=== PATIENT | female | born 1980 | race Caucasian/White ===

== ENCOUNTER 2022-04-02 06:08 | Inpatient (IN) ==
--- NOTE | 2022-03-01 10:27 | PAT Medication Instructions ---
Medication Instructions Date of Service March 01, 2022 Home Medications acetaminophen 300 mg-codeine 30 mg tablet 1 tab PO Q6H PRN Pain cyclobenzaprine 10 mg tablet 10 mg PO TID dextroamphetamine-amphetamine 20 mg tablet (Adderall) 20 mg PO BID ibuprofen 800 mg tablet 800 mg PO TID pregabalin 150 mg capsule (Lyrica) 150 mg PO TID ASK your surgeon for instructions ibuprofen 800 mg tablet 800 mg PO TID DO NOT take the morning of surgery cyclobenzaprine 10 mg tablet 10 mg PO TID dextroamphetamine-amphetamine 20 mg tablet (Adderall) 20 mg PO BID Take morning of surgery With a small sip of water, OTHERWISE NOTHING TO EAT OR DRINK AFTER MIDNIGHT: acetaminophen 300 mg-codeine 30 mg tablet 1 tab PO Q6H PRN Pain (if needed) pregabalin 150 mg capsule (Lyrica) 150 mg PO TID Take evening before surgery acetaminophen 300 mg-codeine 30 mg tablet 1 tab PO Q6H PRN Pain (if needed) cyclobenzaprine 10 mg tablet 10 mg PO TID dextroamphetamine-amphetamine 20 mg tablet (Adderall) 20 mg PO BID pregabalin 150 mg capsule (Lyrica) 150 mg PO TID Other Notes If you have any questions please call us at [phone] or [phone] or [phone] or [phone]
--- NOTE | 2022-03-03 11:30 | Anesthesiology Consultation ---
Date of Service March 03, 2022 Assessment & Plan (1) Encounter for pre-operative examination: - COVID screening: Per assessment on 03/03: No known COVID-19 positive contacts or current COVID-19 related symptoms. Travel screen negative. Patient had sore throat 02/25, developed congestion, ear pain, cough (multiple negative home Covid tests). Diagnosed with bronchitis 03/01- started abx and Tessalon 03/01. Symptoms improved but not resolved. Covid test done 03/03 ([place]) was negative. Pt states she will be seeing PCP prior to surgery. - Check test AM DOS - Patient acceptable risk for surgery pending surgeon-ordered PCP clearance (SHANNAN Edward, scheduled 03/15). Chart Review Chart Review: Patient seen in Pre Admission Testing Teaching & Discussion Pre-Anesthesia Teaching/Discussion Notes: Instructed NPO after midnight before surgery,except medications with 15 cc of water. Medication instructions provided according to the PAT guidelines. History Surgery Operation Date: 04/02/22 12:25 Proposed Procedures p C4-C6 Anterior Cervical Discectomy Fusion with C5 Corpectomy Spinal Cord Monitoring - Tanner Weaver DO Height/Weight Height: 5 ft 4 in Weight: 83.2 kg Allergies Allergy/AdvReac Type Severity Reaction Status Date / Time morphine AdvReac Unknown Face Verified 03/03/22 11:30 itching tramadol AdvReac Unknown Insomnia Verified 02/26/22 15:33 Medications Home Medications Medication Instructions Recorded Confirmed Last Taken acetaminophen 300 mg-codeine 30 mg 1 tab PO Q6H PRN Pain 02/26/22 02/26/22 Unknown tablet cyclobenzaprine 10 mg tablet 10 mg PO TID 02/26/22 02/26/22 Unknown dextroamphetamine-amphetamine 20 20 mg PO BID 02/26/22 02/26/22 Unknown mg tablet (Adderall) ibuprofen 800 mg tablet 800 mg PO TID 02/26/22 02/26/22 Unknown pregabalin 150 mg capsule (Lyrica) 150 mg PO TID 02/26/22 02/26/22 Unknown Past Medical History Medical History Cervical spondylolysis History of COVID-19 03/2020, sore throat, sob, loss taste/smell > resolved Meniere disease Exercise / Class Metabolic Activity II 4-5 Yardwork/Stairs/Walk up hill (one FS (no CP, no SOB)) Past Surgical History Surgical History History of bunionectomy History of laparoscopy x2 for endometriosis and ovarian cyst removal History of open reduction and internal fixation (ORIF) procedure 5th metatarsal Hx of breast augmentation Hx of myringotomy as a baby, w/tubes Hx of rhinoplasty Past Anesthesia History No Family Hx of Anesthesia Complications and Other (Emotional with anesthesia emergence) History of PONV No Hx of PONV and Hx of Motion Sickness (Occasional) Social History Smoking Status: Former smoker Do You Dip or Chew Tobacco: No Smoking End Date: Quit many years ago Hx Alcohol Use: Yes (alfie) Alcohol type: wine alcohol intake frequency: a few times a week Hx Substance Use: No substance use type: does not use Review of Systems Patient denies chest pain, shortness of breath, dyspnea on exertion, fever, chills, , palpitations. Physical Exam PHYSICAL Full cervical extension range of motion. Full TMJ range of motion. TMD 3 finger breaths Mallampati Score 1 Dentition: intact, + crowns Lungs: clear throughout to auscultation Cardiac: regular rate and rhythm, no murmurs noted Spine: normal Carotid arteries: negative bruit Extremities: no edema Lab Results Anesthesia Preop Results Results Anesthesia Widget: WBC 5.03 K/ul (4.8-10.8) 03/03/22 Hgb 13.9 g/dl (12.0-16.0) 03/03/22 Hct 39.1 % (34.1-44.9) 03/03/22 Plt 257 K/uL (130-400) 03/03/22 Na 138 mmol/L (136-145) 03/03/22 K 4.0 mmol/L (3.5-5.1) 03/03/22 Cl 107 mmol/L (98-107) 03/03/22 CO2 25 mmol/L (21-32) 03/03/22 BUN 12 mg/dl (6-23) 03/03/22 Creat 0.73 mg/dl (0.6-1.2) 03/03/22 Glucose Level 91 mg/dl (70-99(Fasting)) 03/03/22 PT 10.4 Seconds (9.0-12.0) 03/03/22 PTT 27.6 Seconds (21.0-31.0) 03/03/22 INR 1.0 (0.9-1.1) 03/03/22 Urine Color Yellow 03/03/22 Urine Appearance Clear (Clear) 03/03/22 Urine pH 7.5 (4.5-7.5) 03/03/22 Urine Specific [place] 1.011 (1.000-1.030) 03/03/22 Urine Protein Negative (Negative) 03/03/22 Urine Glucose (UA) Negative (Negative) 03/03/22 Urine Ketones Negative (Negative) 03/03/22 Urine Blood Negative (Negative) 03/03/22 Urine Nitrite Negative (Negative) 03/03/22 Urine Bilirubin Negative (Negative) 03/03/22 Urine Urobilinogen Negative (Negative) 03/03/22 Urine Leukocyte Esterase Negative (Negative) 03/03/22 Blood Type O Negative 03/03/22 Antibody Screen NEGATIVE 03/03/22 Testing Electrocardiogram Date: 03/03/22 NSR at 85bpm. Chest X-Ray Date: 03/03/22 FINDINGS: PA and lateral chest radiographs are obtained. No prior studies are available for comparison at the time of dictation. The cardiomediastinal silhouette is unremarkable. The lungs and pleural spaces are clear. There is no pneumothorax. The bony thorax appears intact. IMPRESSION: No active disease in the chest. COVID-19 Risk Screen Screening Information COVID-19 Screen Date: 03/03/22 Exposure 21 Days Family/Household +COVID Last 21 Days: No Exposure 10 Days Any COVID Exposure Last 10 Days: No Symptoms Last 10 Days Experienced COVID Sx Last 10 Days: Yes + COVID 0-90 Days COVID + in Last 0-90 Days: No
[~2022-04-02 06:08] MED LIST: ACETAMINOPHEN 500 MG TAB PO SCH; CeleBREX 200 MG CAP PO SCH; GABAPENTIN 900 MG DOSE PO SCH; LR 15ML/HR IV SCH; ceFAZolin 2000MG 2,000 MG/15 ML SYR IV SCH
[2022-04-02] MEDS ORDERED: SUGAMMADEX SODIUM 200 MG/2 ML VIAL IV ONE (06:34)
[2022-04-02] MEDS ORDERED: MIDAZOLAM HCL 1 MG/ML 2ML VIAL ONE (06:48)
[2022-04-02] MEDS ORDERED: fentaNYL citrate 100 MCG/2 ML VIAL ONE ×2 (06:48→08:13)
[2022-04-02] MEDS ORDERED: ONDANSETRON INJ 2 MG/ML 2 ML VIAL ONE (06:48)
[2022-04-02] MEDS ORDERED: KETAMINE 50 MG/5 ML SYRINGE ONE (06:48)
[2022-04-02] MEDS ORDERED: PROPOFOL IV EMULSION 10 MG/ML 20 ML VIAL IV ONE (06:48)
[2022-04-02] MEDS ORDERED: ROCURONIUM BROMIDE 10 MG/ML 5 ML VIAL IV ONE ×4 (06:48→08:23)
[2022-04-02] MEDS ORDERED: DEXAMETHASONE SOD INJ 4 MG/ML VIAL ONE (06:48)
[2022-04-02] MEDS ORDERED: ceFAZolin 330 MG/ML 1 GM VIAL ONE (06:58)
[2022-04-02] MEDS ORDERED: ATROPINE SULFATE 0.1 MG/ML 10ML SYR IV PRN (07:13)
[2022-04-02] MEDS ORDERED: ePHEDrine sulfate 50 MG/ML AMP IV PRN (07:13)
--- NOTE | 2022-04-02 07:41 | History & Physical Bridge Note ---
Date of Service April 02, 2022 History & Physical Bridge Note I have examined the patient, reviewed the History & Physical and in the interval since the performance of the History & Physical I have noted the following changes of clinical significance: no changes noted
--- NOTE | 2022-04-02 07:42 | History & Physical Report ---
Date of Service April 02, 2022 Assessment & Plan (1) Cervical stenosis of spinal canal: Plan: C4-C6 anterior cervical discectomy and fusion, C 5 corpectomy possible C6-C7 History of Present Illness Chief Complaint: Neck and arm pain Primary Care Provider: WIN Cooper This is a 42-year-old female who presents with chronic persistent neck and arm pain after failed extensive course of nonoperative care she is here for surgical invention. Allergies Allergy/AdvReac Type Severity Reaction Status Date / Time tramadol AdvReac Severe Insomnia Verified 04/02/22 06:38 morphine AdvReac Intermediate Face Verified 04/02/22 06:38 itching Home Medications Medication Instructions Recorded Confirmed Type acetaminophen 300 mg-codeine 30 mg 1 tab PO Q6H PRN Pain 02/26/22 04/02/22 History tablet cyclobenzaprine 10 mg tablet 10 mg PO TID 02/26/22 04/02/22 History dextroamphetamine-amphetamine 20 20 mg PO BID 02/26/22 04/02/22 History mg tablet (Adderall) ibuprofen 800 mg tablet 800 mg PO TID 02/26/22 04/02/22 History pregabalin 150 mg capsule (Lyrica) 150 mg PO TID 02/26/22 04/02/22 History Past Med/Surg History Medical History Cervical spondylolysis History of COVID-19 03/2020, sore throat, sob, loss taste/smell > resolved Meniere disease Surgical History History of bunionectomy History of laparoscopy x2 for endometriosis and ovarian cyst removal History of open reduction and internal fixation (ORIF) procedure 5th metatarsal Hx of breast augmentation Hx of myringotomy as a baby, w/tubes Hx of rhinoplasty Social History Smoking Status: Former smoker Smoking End Date: Quit many years ago; Second Hand Exposure: No; Do You Dip or Chew Tobacco: No; Tobacco Cessation Education Requested by Patient: No Hx Alcohol Use: Yes (alfie) Alcohol type: wine Hx Substance Use: No Preferred Language: Bulgarian Communication Ability: Effective Dietician Required: No Beliefs That Will Affect Care: None Current Living Situation: Spouse Other Information That Helps Us Care for You: No Feels Safe at Home: Yes Safety Concerns: Feels Safe At This Time Assistive Devices: Hearing Aid - Left Physical Exam Physical Exam: Patient is alert and oriented Heart regular rhythm Lungs clear Results & Data Results & Data ([facility]) Vital Signs (Past 12 Hours) Vital Signs Temp Pulse Resp BP Pulse Ox O2 Del Method 04/02/22 06:41 36.8 C 97 H 22 129/84 98 Room Air
[2022-04-02] MEDS ORDERED: FLOSEAL HEMOSTATIC MATRIX 10ML TOP ONE (08:37)
[2022-04-02] MEDS: fentaNYL citrate 100 MCG/2 ML VIAL IV PRN ×3 (10:13→10:28)
[2022-04-02] MEDS: HYDROmorphone INJ 2 MG/ML SYR/VIAL IV PRN ×4 (10:34→10:49)
[2022-04-02] MEDS ORDERED: MIDAZOLAM HCL 1 MG/ML 2ML VIAL IV STA ×2 (10:59→11:18)
[2022-04-02] MEDS ORDERED: MIDAZOLAM SYRUP 10 MG/5 ML UDC PO SCH (11:15)
[2022-04-02] MEDS ORDERED: diazePAM 5 MG TABLET PO ONE (11:17)
--- NOTE | 2022-04-02 11:27 | Anesthesiology Progress Note ---
Date of Service April 02, 2022 Anesthesia Post Procedure Vital Signs Vital Signs: Temp Pulse Resp BP BP Pulse Ox O2 Del Method 04/02/22 11:05 87 14 142/101 H 97 Oxymask 04/02/22 11:15 79 9 L 156/92 H 96 Oxymask 04/02/22 10:55 87 23 130/92 100 Oxymask 04/02/22 10:45 84 12 129/87 96 Oxymask 04/02/22 10:35 87 20 150/64 H 98 Oxymask 04/02/22 10:25 85 12 127/71 100 Oxymask 04/02/22 10:15 89 14 114/68 100 Oxymask 04/02/22 10:09 36.2 C L 96 H 11 L 129/67 100 Oxymask 04/02/22 06:41 36.8 C 97 H 22 129/84 98 Room Air O2 Flow Rate 04/02/22 11:05 2 04/02/22 11:15 2 04/02/22 10:55 2 04/02/22 10:45 2 04/02/22 10:35 2 04/02/22 10:25 5 04/02/22 10:15 5 04/02/22 10:09 5 04/02/22 06:41 Pain Intensity Neck: Pain Intensity: 9 Transfer of Care Handoff Completed per policy Notes Mental Status: alert / awake / arousable and participated in evaluation Patient Amnestic to Procedure: Yes Nausea / Vomiting: adequately controlled Pain: adequately controlled Airway Patency, RR, SpO2: stable & adequate BP & HR: stable & adequate Hydration State: stable & adequate Anesthetic Complications: no major complications apparent and Pt Satisfied with anesthetic care
[2022-04-02] MEDS ORDERED: ONDANSETRON 4 MG OD TAB PO PRN (12:41)
[2022-04-02] MEDS ORDERED: SOD PHOSPHATE/SOD BIPHOSPHATE ENEMA 132 ML BTL PR PRN (12:41)
[2022-04-02] MEDS ORDERED: LORazepam 0.5 MG in SYRINGE 0 ML IV PRN (12:41)
[2022-04-02] MEDS ORDERED: bisacodyL 10 MG SUPP PR PRN (12:41)
[2022-04-02] MEDS ORDERED: ALUMINUM/MAGNESIUM SUSP 30 ML UDC PO PRN (12:41)
[2022-04-02] MEDS ORDERED: DO NOT ADMINISTER PNEUMOCOCCAL VACCINE PRN (12:41)
[2022-04-02] MEDS ORDERED: ACETAMINOPHEN 1,000 MG/100 ML VIAL IV PRN (12:41)
[2022-04-02] MEDS ORDERED: FAMOTIDINE 20 MG TAB PO PRN (12:41)
[2022-04-02] MEDS ORDERED: HYDROmorphone INJ 1 MG/ML SYRINGE IV PRN (12:41)
[2022-04-02] MEDS ORDERED: PROMETHAZINE HCL 12.5 MG in SODIUM CHLORIDE 0.9% 50 ML IV PRN (12:41)
[2022-04-02] MEDS ORDERED: DO NOT ADMINISTER FLU VACCINE PRN (12:41)
[2022-04-02] MEDS ORDERED: NALOXONE HCL 0.4 MG/1 ML VIAL/CARP IV PRN (12:41)
[2022-04-02] MEDS ORDERED: METOCLOPRAMIDE HCL INJ 5 MG/ML 2 ML VIAL IV PRN (12:41)
[2022-04-02] MEDS ORDERED: dexAMETHasone 8 MG in SYRINGE 0 ML IV PRN (12:41)
[2022-04-02] MEDS ORDERED: hydrOXYzine HCl 25 MG TAB PO PRN (12:41)
[2022-04-02] MEDS ORDERED: RACEPINEPHRINE 2.25% NEBU SOLN 0.5 ML VIAL INH PRN (12:41)
[2022-04-02] MEDS ORDERED: MAGNESIUM HYDROXIDE SUSP 30 ML UDC PO PRN (12:41)
[2022-04-02] MEDS ORDERED: ACETAMINOPHEN 500 MG TAB PO PRN (12:41)
[2022-04-02] MEDS ORDERED: ONDANSETRON INJ 2 MG/ML 2 ML VIAL IV PRN (12:41)
--- NOTE | 2022-04-02 12:50 | Fluoroscopy Report ---
FL cervical 2-3V CLINICAL HISTORY: ACDF C4-6 CORPECTOMY C5 TECHNIQUE: 3 views were obtained with the C-arm in the OR with the above procedure. Total fluoroscopy time was 12 seconds. Comparison: None available at the time of this dictation. FINDINGS/IMPRESSION: Intraoperative images were obtained of ACDF spanning C4-C6 and corpectomy of C5. Please correlate with intraoperative fluoroscopy and operative report. ACT 112: Negative or not required by law. Electronically signed by: Pollo Talbert M.D. 04/02/2022 12:48 PM
[2022-04-02] MEDS: LACTATED RINGER'S 1,000 ML IV SCH ×2 (13:02→22:01)
[2022-04-02] MEDS: PREGABALIN 150 MG CAP PO SCH ×2 (13:21→21:10)
[2022-04-02] MEDS: AMPHETAMINE ASP/SULF/DEXTRAMPH 20 MG TAB PO SCH (13:21)
[2022-04-02] MEDS: oxyCODONE HCL IR 5 MG TAB (IMMEDIATE RELEASE) PO PRN ×3 (13:47→22:01)
[2022-04-02] MEDS: dexAMETHasone 6 MG in SYRINGE 0 ML IV SCH ×2 (14:29→22:00)
[2022-04-02] MEDS: ceFAZolin 2000MG 2,000 MG/15 ML SYR IV SCH (15:44)
[2022-04-02] MEDS: CYCLOBENZAPRINE HCL 10 MG TAB PO PRN (18:43)
[2022-04-02] MEDS ORDERED: DOCUSATE SODIUM/SENNA 50/8.6MG TAB PO SCH (21:00)
[2022-04-03] MEDS: ceFAZolin 2000MG 2,000 MG/15 ML SYR IV SCH (00:04)
[2022-04-03] MEDS: HYDROmorphone INJ 0.5 MG/0.5 ML SYR IV PRN ×2 (00:08→04:07)
[2022-04-03] MEDS: LORazepam 0.5 MG TAB PO PRN ×2 (00:08→01:04)
[2022-04-03] MEDS: CYCLOBENZAPRINE HCL 10 MG TAB PO PRN ×2 (02:10→10:37)
[2022-04-03] MEDS: oxyCODONE HCL IR 5 MG TAB (IMMEDIATE RELEASE) PO PRN ×3 (02:10→10:37)
[2022-04-03] MEDS: diphenhydrAMINE Capsule 25 MG CAP PO PRN ×2 (02:10→07:55)
[2022-04-03] MEDS ORDERED: POLYETHYLENE (MIRALAX) 17 GM PACK PO SCH (06:00)
[2022-04-03] MEDS: dexAMETHasone 6 MG in SYRINGE 0 ML IV SCH (06:21)
[2022-04-03] MEDS: PREGABALIN 150 MG CAP PO SCH (07:56)
[2022-04-03] MEDS: AMPHETAMINE ASP/SULF/DEXTRAMPH 20 MG TAB PO SCH (07:57)
--- NOTE | 2022-04-03 09:11 | Operative Report ---
Post Operative Report Pre & Post Diagnosis Operation Date: 04/02/22 07:45 Pre-Op Diagnosis: Cervical spinal stenosis with myeloradiculopathy Post-Op Diagnosis: Same I identified the patient and participated in the time-out.: Yes Procedure Operation Date: 04/02/22 07:45 Actual Procedures #1 anterior cervical corpectomy with bilateral foraminotomies C5. #2 anterior cervical discectomy with bilateral foraminotomies C6-C7. #3 anterior cervical arthrodesis C4-C5 and C6-C7. #4 placement of peek cage C4 to see 625 mm in height and C6-C7 7 mm in height. #5 placement locally harvested morselized autograft combined with I factor interbody cages. #6 application of K2 M plate and screws from C4-C7. Surgeon Tanner Weaver DO Laminating Machine Operator Helper None Estimated Blood Loss 20 Findings Consistent with Post-Op Diagnosis Specimens None Indications This is a 42-year-old female who presents above-mentioned diagnosis after failing course of nonoperative care is here for the above-mentioned procedure. Description of Procedure Patient was met with identified informed consent obtained. Patient was then taken to the operative suite underwent patient placed in supine position Alban table with head Ku packager head. All bony prominences well-padded eyes inspected to ensure no external pressure placed upon the. This point the anterior cervical spine was prepped and draped no sterile fashion. With the assistance of fluoroscopy identify the C5-C6 disc base and a transverse incision was placed along the right anterior aspect of the cervical spinal lines region. Blunt dissection with assistance of bipolar cautery was then performed down to and exposing the anterior cervical spine from C4-C7. A self-retaining retractors placed. Then formed a complete discectomy of C4-C5 and C5-C6 out to the uncovertebral joints bilaterally. [place] distractor pins were then placed in C4 and C6 to distract across the C5 vertebral body. Complete corpectomy of C5 was then performed including removal of all posterior annular fibers longitudinal ligament and bilateral foraminotomies. Endplates burred to subcortically bone and a 25 mm peek cage filled with locally harvested morselized autograft and I factor tapped into position. Then proceeded to C6- C7. Again complete discectomy performed after the uncovertebral joints bilaterally. [place] distractor pins again utilized. A complete Discectomy was performed out to the uncovertebral joints bilaterally. Removed all posterior annular fibers longitudinal ligament bilateral foraminotomies performed and a 7 mm peek cage filled with locally harvested morselized autograft and I factor tapped in position. Distracting apparatus was removed all anterior osteophytes burred to smooth cortical surface and a K2 M plate and screws applied with the assistance of fluoroscopy. Incision was then copiously irrigated explored to ensure no damage to surrounding structures remaining bleeding. 10 round PHU drain inserted. The incision was then closed with 2 Vicryl in a fashion of 4 Monocryl for final skin closure. Steri-Strip sterile dressings placed. Patient awakened and taken to PACU in stable condition. Please note spinal cord monitoring was utilized at the procedure no changes noted. I attest to the content of the Intraoperative Record and any orders documented therein. Any exceptions are noted below.
--- NOTE | 2022-04-03 10:10 | Discharge Summary ---
Date of Service April 03, 2022 Admission HPI Per Admitting Provider This is a 42-year-old female who presents with chronic persistent neck and arm pain after failed extensive course of nonoperative care she is here for surgical invention. Principal Diagnosis Cervical spinal stenosis with myeloradiculopathy Discharge Data Allergies Allergy/AdvReac Type Severity Reaction Status Date / Time tramadol AdvReac Severe Insomnia Verified 04/02/22 06:38 morphine AdvReac Intermediate Face Verified 04/02/22 06:38 itching Procedures Performed Operation Date: 04/02/22 07:45 Actual Procedures p C4-C6 Anterior Cervical Discectomy Fusion with C5 Corpectomy Spinal Cord Monitoring(Not Applicable) - Tanner Weaver DO Ordered Studies 04/02/22 07:45 FL cervical 2-3V Routine Hospital Course (1) Cervical stenosis of spinal canal: Patient 1 anterior cervical decompression and fusion tolerated this well was taken to the orthopedic for postoperative. Postop day 1 she was swallowing well. No hoarseness. Excellent strength testing. PHU drain decreasing appropriately. Subsequently discharged home. Discharge orders and instructions from the chart for further review. Total Time Total Time Spent Total Time Spent (In Minutes): 20 minutes Discharge Plan Discharge Items Reason For Visit: Other Spondylosis with Radiculopathy Cervical Reg Follow-up/Referrals: Jacqueline Keller CRNP [Primary Care Provider] - Medications and DC Order Prescriptions: No Action cyclobenzaprine [Flexeril] 10 mg Tablet 10 mg PO TID ibuprofen [Motrin] 800 mg Tablet 800 mg PO TID acetaminophen-codeine [Tylenol-Codeine #3] 300-30 mg Tablet 1 tab PO Q6H PRN (Reason: Pain) dextroamphetamine-amphetamine [Adderall] 20 mg Tablet 20 mg PO BID Rx Instructions: administer doses at least 4-6 hours apart pregabalin [Lyrica] 150 mg Capsule 150 mg PO TID Admission Data Admit Date/Time: 04/02/22 10:01 Attending Provider: Tanner Weaver Admit Provider: Tanner Weaver Primary Care Provider: Jacqueline Keller
== END 2022-04-03 13:13 | disposition home or self-care (01) | DRG 472 ==
LOC: ASU 06:08 → 3E 10:01